=== PATIENT | female | born 2000 | race Caucasian/White ===

== ENCOUNTER 2021-11-25 03:40 | Emergency (ER) | payer BC ==
--- OUTSIDE RECORDS SUMMARY | 2021-11-25 03:43 | XMS REPORT | Continuity of Care Document ---
:2000 Author Organization [facility] t Address [address] [place] [address] Care Team Providers Name Role Phone Guero ACOSTA Primary Care Physician Unavailable Guero Acosta Attending Clinician Unavailable Marium Keller MD Attending Clinician Marium KELLER Attending Clinician Unavailable Payers Payer Name Policy Type Policy Number Effective Date Expiration Date S [facility] - [id number] 2017 00:00:00 OUT OF STATE Problems Condition Condition Condition Status Onset Resolution Last Treating Co mments Source Name Details Category Date Date Treatment Clinician Date Medical Medical Problem Active Common history history [facility] non[facility]ri [facility] Allergic Allergic Problem Active Commo n rhinitis, rhinitis, Spir it unspecifie unspecifie - [facility] seasonalit seasonalit Sparkle kes y, y, Medical unspecifie unspecifie Ce nter d trigger d trigger Encounter Encounter Diagnosis Active C [facility] for for Spirit surveillan surveillan - [facility] ce of ce of [facility] Sparkle kes bhanu pills bhanu pills [facility] No known No known Disease Unive rs active active ity of problems problems [facility] Allergies, Adverse Reactions, Alerts Allergy Allergy Status Severity Reaction(s) Onset Inactive Treating Comm ents Source Name Type Date Date Clinician NO KNOWN Drug Active Univers ALLERGIE Class ity of S [facility] Social History Social Habit Start Date Stop Date Quantity Comments Source Exposure to Not sure University of SARS-CoV-2 [place] [facility] (event) Branch History SDOH University o f Alcohol Std [place] [facility] Drinks Branch History [facility] o f Alcohol Binge [place] [facility] Alcohol intake 2021-03-14 2021-03-14 Current drinker Unive rsity of 00:00:00 00:00:00 of alcohol [place] [facility] (finding) Branch Alcohol Comment 2021-03-14 2021-03-14 social Universit y of 00:00:00 00:00:00 [facility] Tobacco use and 2019-09-09 2019-09-09 Never used Universit y of exposure 00:00:00 00:00:00 [place] [facility] [place] History SDOH 2019-09-09 2019-09-09 1 University o f Alcohol Frequency 00:00:00 [facility] [place] Sex Assigned At [birth year] Universit y of 00:00:00 00:00:00 [facility] Smoking Status Start Date Stop Date Source Never smoker [facility] Medications Ordered Filled Start Stop Current Ordering Indication Dosage Frequency Signature Comments Components Source Medication Medication Date Date Medication? Clinician (SIG) Name Name COLLAGEN Yes Univers MISC 03-14 ity of 15:53: [address] MULTIVITAMI Yes Take by Un susan N ORAL 03-14 mouth. ity of 15:53: [address] levocetiriz Yes 5mg Take 5 mg U nivers ine 5 mg 03-14 by mouth ity of tablet 15:52: every [place] 22 evening. Medical Branch norethindro Yes [id number] 1{tbl} Take 1 Univers ne-e.estrad 03-14 tablet by ity of ioL-iron 00:00: mouth [place] (BLISOVI FE 00 daily. Medica l 1.11/18, Branch 28,) 1.5 mg-30 mcg (21)/75 mg (7) per tablet BLISOVI FE 2020- No [id number] TAKE 1 U nivers 1.5, 28, 9-03-14 TABLET BY it y of 1.5 mg-30 00:00: 00:00 MOUTH [place] mcg (21)/75 00 :00 EVERY DAY Med ical mg (7) per Branch tablet Blisovi Fe Blisovi Fe Yes [place] 1 tablet Common 1.530 1.5/30 [facility] Vital Signs Vital Name Observation Time Observation Value Comments Source Systolic blood 2021-03-14 20:48:00 121 mm[Hg] Univer sity of pressure [facility] Diastolic blood 2021-03-14 20:48:00 77 mm[Hg] Unive rsity of [facility] Heart rate 2021-03-14 20:48:00 76 /min [facility] Body temperature 2021-03-14 20:48:00 36.83 [facility] Respiratory rate 2021-03-14 20:48:00 18 /min [facility] Body height 2021-03-14 20:48:00 157.5 cm [facility] Body weight 2021-03-14 20:48:00 72.576 kg [facility] BMI 2021-03-14 20:48:00 29.26 kg/m2 [facility] Procedures This patient has no known procedures. Encounters Start End Encounter Admission Attending Care Care Encounter Source Date/Time Date/Time Type Type Clinicians Facility Department ID 2021-07-17 Outpatient Acosta, [facility] [id number] Common 12:42:28 [facility] [address] [facility] 2021-07-15 2021-07-15 Outpatient R [facility] [id number] Univers 15:00:00 15:00:00 [id number] [facility] 2021-07-15 2021-07-15 Outpatient R [facility] [id number] Univers 15:00:00 [facility]:00:[facility] 2021-03-14 2021-03-14 [facility] [id number] Univers 15:27:33 16:18:04 Visit Trip Elizabeth [id number] [facility] [id number] Catrina Berumen [id number] Pr [place] [address] Branch [facility] 2021-03-14 2021-03-14 [facility] [id number] Univers 15:30:00 15:30:00 TRIP [id number] [facility] 2021-03-14 2021-03-14 Outpatient R ADUM, [facility] [id number] Univers 15:30:00 15:30:00 TRIP [facility] 2020-03-13 2020-03-13 Outpatient R ADUM, [facility] [id number] Univers 15:30:00 15:30:00 [facility]IP [id number] [facility] 2020-03-13 2020-03-13 Outpatient R ADUM, [facility] [id number] Univers 15:30:00 15:30:00 TRIP [facility] 2020-03-12 2020-03-12 Outpatient R ADUM, [facility] [id number] Univers 13:00:00 13:00:00 [facility]IP [id number] [facility] 2020-03-12 2020-03-12 Outpatient R ADUM, [facility] [id number] Univers 13:00:00 13:00:00 TRIP [facility] 2019-09-12 2019-09-12 Outpatient R ADUM, [facility] [id number] Univers 09:00:00 09:00:00 TRIP [facility] 2019-09-09 2019-09-09 Outpatient R ADUM, [facility] [id number] Univers 14:00:00 14:00:00 TRIP [facility] 2018-10-20 2018-10-20 [id number] Common 13:30:00 13:30:00 [facility] 2018-10-08 2018-10-08 [facility] [id number] Common 10:08:00 10:08:[address] [facility] 2018-10-06 2018-10-06 [facility] [id number] Common 13:12:00 13:12:[address] [facility] 2018-08-16 2018-08-16 [facility] [id number] Common 15:42:00 15:42:[address] [facility] 2018-08-05 2018-08-05 Outpatient Bunny Hollist [id number] Common 09:09:00 09:09:[address] [facility] 2018-07-29 2018-07-29 Outpatient Bunny Estrada [id number] Common 14:15:00 14:15:[address] [facility] Results This patient has no known results.
[2021-11-25 04:15] LABS: Urine Blood 3+ (Negative); Urine Glucose Trace (Negative); Urine Protein 3+ (Negative); Urine Specific Gravity 1.025 (1.005-1.030); Urine pH 5.5 (5.0-7.0)
[2021-11-25 04:29] LABS: Urine Bacteria <20 /HPF (<20); Urine RBC >50 /HPF (NONE SEEN)
[2021-11-25 04:30] LABS: Urine Specific Gravity/Preg 1.025 (1.005-1.030)
[2021-11-25 06:39] LABS: Absolute Lymphocytes (CBC) 2.5 K/uL (0.7-4.9); Hematocrit 37.6 % (36.0-45.0); Lymphocytes % 18.9 % (15.3-44.8); MPV 7.6 fL (7.6-11.3); RBC Red Blood Cell Count 4.41 M/uL (3.86-4.86)
[2021-11-25 07:08] LABS: Potassium 3.7 mmol/L (3.5-5.1)
--- NOTE | 2021-11-25 07:12 | EDPHYS ---
Physician Documentation [facility] Name: Michelle Santacruz Age: 21 yrs Sex: Female : 2000 Arrival Date: 11/25/2021 Time: 03:47 Bed 5 Private MD: ED Physician Gee Bates HPI: 11/25 07:11 This 21 yrs old Female presents to ER via Ambulatory with complaints of Flank Pain. ms3 07:11 The patient complains of pain in the left flank. The pain does not radiate. ms3 ORACLE EBS ARCHITECT: 04:03 LMP 10/2021 bb Historical: - Allergies: 04:03 No Known Allergies; bb - Home Meds: 04:03 BCP [Active]; bb - PMHx: 04:03 None; bb - PSHx: 04:03 None; bb - Immunization history:: Client reports having NOT received the Covid vaccine. - Social history:: Smoking status: Reported history of juuling and/or vaping. ROS: 07:11 Constitutional: Negative for fever, and chills. Neck: Negative for injury, pain, and ms3 swelling, Cardiovascular: Negative for chest pain, and palpitations. Respiratory: Negative for shortness of breath, cough, wheezing, and pleuritic chest pain. 07:11 Abdomen/GI: Positive for abdominal pain, nausea. 07:11 : Positive for urinary symptoms, urinary frequency, burning with urination. Exam: 07:11 Constitutional: This is a well developed, well nourished patient who is awake, alert, ms3 and in no acute distress. Head/Face: Normocephalic, atraumatic. ENT: Nares patent. No nasal discharge, no septal abnormalities noted. Tympanic membranes are normal and external auditory canals are clear. Oropharynx with no redness, swelling, or masses, exudates, or evidence of obstruction, uvula midline. Mucous membranes moist. Neck: Trachea midline, no cervical lymphadenopathy. Supple, full range of motion without nuchal rigidity, or vertebral point tenderness. No Meningismus. Chest/axilla: Normal chest wall appearance and motion. Nontender with no deformity. Cardiovascular: Regular rate and rhythm with a normal S1 and S2. No gallops, murmurs, or rubs. Normal PMI, no JVD. No pulse deficits. Respiratory: Lungs have equal breath sounds bilaterally, clear to auscultation and percussion. No rales, rhonchi or wheezes noted. No increased work of breathing, no retractions or nasal flaring. Abdomen/GI: Soft, non-tender, with normal bowel sounds. No distension or tympany. No guarding or rebound. No evidence of tenderness throughout. Back: No spinal tenderness. No costovertebral tenderness. Full range of motion. Skin: Warm, dry with normal turgor. Normal color with no rashes, no lesions, and no evidence of cellulitis. MS/ Extremity: Pulses equal, no cyanosis. Neurovascular intact. Full, normal range of motion. Psych: Awake, alert, with orientation to person, place and time. Behavior, mood, and affect are within normal limits. Vital Signs: 04:01 BP 137 / 95; Pulse 87; Resp 16 S; Temp 98.4(O); Pulse Ox 98% on R/A; Weight 72.57 kg bb (R); Height 5 ft. 2 in. (157.48 cm) (R); Pain 5/10; 06:43 BP 128 / 79; Pulse 63; Resp 18; Pulse Ox 99% on R/A; kd3 07:40 BP 112 / 71; Pulse 60; Pulse Ox 99% ; ap3 04:01 Body Mass Index 29.26 (72.57 kg, 157.48 cm) bb MDM: 04:06 Patient medically screened. ms3 07:11 Differential diagnosis: nephrolithiasis, pyelonephritis, UTI. Data reviewed: vital ms3 signs, nurses notes, lab test result(s), radiologic studies, CT scan, and as a result, I will discharge patient. Counseling: I had a detailed discussion with the patient and/or guardian regarding: the historical points, exam findings, and any diagnostic results supporting the discharge/admit diagnosis, lab results, radiology results, the need for outpatient follow up, to return to the emergency department if symptoms worsen or persist or if there are any questions or concerns that arise at home. ED course: Discussed labs, CT , PE findings with patient. Patient to follow up with PMD in 2-3 days. Patient understands/ agrees with plan. All questions answered. Return precautions given to include worsening symptoms, or any other concerns. Patient is improved, in NAD, non-toxic appearing, ambulatory in ED, speaking full sentences.. 06/06 04:06 Order name: Urine Microscopic Only; Complete Time: 04:49 ms3 11/25 04:15 Order name: Urine Dipstick-Ancillary; Complete Time: 04:49 EDMS 11/25 04:19 Order name: Urine --Ancillary (enter results); Complete Time: 04:49 wm 11/25 04:33 Order name: Urine Culture EDMS 11/25 05:38 Order name: CBC with Diff; Complete Time: 07:06 ms3 11/25 05:38 Order name: BMP ms3 11/25 05:38 Order name: CT Abd/Pelvis - Without Contrast ms3 Administered Medications: No medications were administered Disposition Summary: 11/25/21 07:11 Discharge Ordered Location: Home ms3 Condition: Stable ms3 Diagnosis - Pyelonephritis acute ms3 Discharge Instructions: - Discharge Summary Sheet ms3 - Pyelonephritis, Adult ms3 Forms: - Medication Reconciliation Form ms3 - Thank You Letter ms3 - Antibiotic Education ms3 - Prescription Opioid Use ms3 Prescriptions: - cefpodoxime 200 mg Oral Tablet - take 1 tablet by ORAL route every 12 hours with food; 20 tablet; Refills: 0, ms3 Product Selection Permitted Signatures: Dispatcher [employer] EDMS Yaneth Canela RN RN Gee Dickerson DO DO ms3 Jammie Mirza PA PA sb3
--- NOTE | 2021-11-25 07:12 | ER ---
Nurse's Notes [facility] Name: Michelle Santacruz Age: 21 yrs Sex: Female : 2000 Arrival Date: 11/25/2021 Time: 03:47 Bed 5 Private MD: Diagnosis: Pyelonephritis acute Presentation: 11/25 04:01 Chief complaint: Patient states: she is having severe left sided abdominal pain which bb just started and burning with urination for about 3 days, vomited x 1 [address] lot denies fever. Coronavirus screen: At this time, the client does not indicate any symptoms associated with coronavirus-19. Ebola Screen: No symptoms or risks identified at this time. Initial Sepsis Screen: Does the patient meet any 2 criteria? No. Patient's initial sepsis screen is negative. Does the patient have a suspected source of infection? No. Patient's initial sepsis screen is negative. Risk Assessment: Do you want to hurt yourself or someone else? Patient reports no desire to harm self or others. Onset of symptoms was November 25, 2021. 04:01 Method Of Arrival: Ambulatory bb 04:01 Acuity: CLAIR 3 bb Triage Assessment: 04:00 General: Appears uncomfortable, Behavior is appropriate for age. Pain: Complains of ke1 pain in pelvic Pain currently is 5 out of 10 on a pain scale. 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 - Social history:: Smoking status: Reported history of juuling and/or vaping. Screenin:05 Abuse screen: Denies threats or abuse. Denies injuries from another. Nutritional kd3 screening: No deficits noted. Tuberculosis screening: No symptoms or risk factors identified. Fall Risk None identified. Assessment: 05:23 Reassessment: see triage. ke1 07:39 Reassessment: Patient and/or family updated on plan of care and expected duration. Pain ap3 level reassessed. Patient is alert, oriented x 3, equal unlabored respirations, skin warm/dry/pink. Vital Signs: 04:01 BP 137 / 95; Pulse 87; Resp 16 S; Temp 98.4(O); Pulse Ox 98% on R/A; Weight 72.57 kg bb (R); Height 5 ft. 2 in. (157.48 cm) (R); Pain 5/10; 06:43 BP 128 / 79; Pulse 63; Resp 18; Pulse Ox 99% on R/A; kd3 07:40 BP 112 / 71; Pulse 60; Pulse Ox 99% ; ap3 04:01 Body Mass Index 29.26 (72.57 kg, 157.48 cm) ED Course: 03:47 Patient arrived in ED. ja2 03:58 Gee Bates DO is Attending Physician. ms3 04:03 Triage completed. bb 04:03 Arm band placed on Patient placed in an exam room, on a stretcher, on pulse oximetry. bb Family accompanied patient. 04:04 Tierra Allred, RN is Primary Nurse. kd3 05:24 Patient has correct armband on for positive identification. ke1 05:56 CT Abd/Pelvis - Without Contrast In Process Unspecified. EDMS 07:40 No provider procedures requiring assistance completed. IV discontinued, intact, ap3 bleeding controlled, No redness/swelling at site. Pressure dressing applied. Administered Medications: No medications were administered Medication: 06:44 VIS not applicable for this client. kd3 Outcome: 07:11 Discharge ordered by MD. ms3 07:40 Discharged to home ambulatory, with family. ap3 07:40 Condition: good 07:40 Discharge instructions given to patient, Instructed on discharge instructions, follow up and referral plans. medication usage, Demonstrated understanding of instructions, follow-up care, medications, Prescriptions given X 1. 07:42 Patient left the ED. ap3 Addendum: 11/28/2021 09:20 Addendum: Culture Results: Positive urine culture. No further action required. Bacteria e b sensitive to prescribed antibiotic. Signatures: Dispatcher [employer] EDMS Yaneth Canela RN RN bb Prokisch, Amanda, RN RN ap3 Alisson Edmonds Marcus, DO DO ms3 Anya Gomez ja2 Tierra Allred RN RN kd3 Andrew Aguilera RN RN ke1 Corrections: (The following items were deleted from the chart) 11/25 05:23 04:00 Pain: Complains of pain in pelvic Pain currently is 10 out of 10 on a pain scale. ke1 ke1
[2021-11-25 08:03] VITALS: TEMP 98.4
[2021-11-25 08:14] VITALS: BP 128/79; O2SAT 99
--- NOTE | 2021-11-25 14:31 | RAD REPORT ---
EXAM DESCRIPTION: Abdomen Pelvis Wo Contrast CT Abdomen/Pelvis Without Contrast CLINICAL HISTORY: Left flank pain COMPARISON: None. TECHNIQUE: Abdomen/pelvis axial images acquired Without IV contrast. Coronal and sagittal reformats created. Exam performed according to departmental dose-optimization program which includes automated exposure control, adjustment of mA and/or kV according to patient size, and/or use of iterative recon struction technique. FINDINGS: No free air or significant free fluid. Liver, gallbladder, spleen, pancreas, adrenals, kidneys, uterus, adnexa, and urinary bladder unremark able noncontrast appearance. Nonopacified stomach, small bowel, appendix, and large bowel appear grossly unremarkable. Portions of large bowel difficult to accurately evaluate due to lack of distention. Abdominal aorta unremarkable noncontrast appearance. Mild thoracolumbar spine junction levoscoliosis. L4/L5 and L5/S1 small disc protrusions causing mild central canal stenosis. IMPRESSION: 1. No CT evidence of acute abdominal/pelvic disease. 2. Mild thoracolumbar spine junction levoscoliosis. Electronically signed by: Sterling Babb MD 11/25/2021 6:13 AM CDT Due to temporary technical issues with the PACS/Fluency reporting system, reports are being signed by the in house radiologist without review as a courtesy to ensure prompt reporting. The interpreting r adiologist is fully responsible for the content of the report.
== END 2021-11-25 07:42 | disposition home or self-care (01) ==
LOC: ER 03:40
DX: N10 Acute pyelonephritis (principal)
CPT/HCPCS: 36415; 74176; 80048; 81003; 81015; 81025; 85025; 87077; 87086; 87088; 87186; 99283